=== PATIENT | male | born 2000 | race Two or more races ===

== ENCOUNTER → 2025-03-01 | Outpatient (CLI) | payer BC, SELFPAY ==
--- NOTE | 2025-03-01 10:53 | XR_ITS ---
EXAMINATION: PA lateral chest 2 views TECHNIQUE: Upright PA lateral chest 2 views Date and time: March 01, 2025, 1102 hours INDICATIONS: Chest pain beginning 1 week ago. FINDINGS: Normal heart size Lungs are clear. The osseous structures are intact IMPRESSION: : No active disease
== END | disposition home or self-care (01) ==
PROVIDERS: PCP Family Medicine; Referring Provider Family Medicine; Visit Provider Family Medicine
DX: R09.1 Pleurisy (principal)
CPT/HCPCS: 71046